=== PATIENT | female | born 1930 | race Caucasian/White ===

== ENCOUNTER 2017-05-05 16:40 | Emergency (ER) | payer MEDICARE, OTHER ==
[2017-05-05] MEDS ORDERED: Sodium Chloride 0.9% 10 ML Syringe FLUSH PRN (16:57)
[2017-05-05 16:59] VITALS: BP 155/105
[2017-05-05] MEDS ORDERED: fentaNYL 100 MCG/2 ML SDV IVPUSH ONE (17:00)
[2017-05-05] MEDS ORDERED: Sodium Chloride 0.9% 1,000 ML IV SCH (17:00)
[2017-05-05] MEDS ORDERED: Midazolam 1 MG/ML 2 ML SDV IVPUSH ONE (17:02)
--- NOTE | 2017-05-05 17:15 | EDM.PDOC ---
ED HPI GENERAL MEDICAL PROBLEM - General Chief Complaint: Lower Extremity Injury/Pain Stated Complaint: [facility] Time Seen by Provider: 05/05/17 16:52 Source of Information: Reports: Patient, EMS, Family - History of Present Illness INITIAL COMMENTS - FREE TEXT/NARRATIVE: 86-year-old lady suffered injury to her right ankle a short time ago. She states that she was in the bathroom on the stool. When she tried to get up one of her knees gave out on her and she ended up twisting her right ankle with resultant dislocation, probable fracture dislocation. She's been transported here by EMS. She was given 50 g of fentanyl in route. She does deny other pain or injury from this incident. Did not hit her head that she is aware of. No headache or LOC. No chest pain or difficulty breathing. No hip or pelvic discomfort. She does have history of hypertension and also chronic atrial fibrillation on aspirin and Coumadin. Left Ankle Pain Score (Numeric/FACES): 5 - Related Data Allergies Allergy/AdvReac Type Severity Reaction Status Date / Time No Known Allergies Allergy Verified 05/05/17 16:59 Home Meds: Home Meds Acetaminophen [Tylenol Extra Strength] 500 mg PO BEDTIME 02/09/15 [History] Arthritis Ease 1 cap PO BID 02/09/15 [History] Aspirin [Halfprin] 81 mg PO DAILY 02/09/15 [History] Calcium Carbonate/Vitamin D3 [Caltrate 600 + D Tablet] 400 - 600 mg PO BID 02/09 [History] Cholecalciferol (Vitamin D3) [Vitamin D3] 2,000 unit PO DAILY 02/09/15 [History] Flaxseed Oil [Flax Oil] 1,000 mg PO BID 02/09/15 [History] Gluc/Wild-Msm#1/Vit C/Maciel/Bor [Szmqkjy-Ujgzs-QXQ Complex Cplt] 400 - 500 mg PO BID 02/09/15 [History] Lisinopril 10 mg PO DAILY 02/09/15 [History] Lutein 20 mg PO DAILY 02/09/15 [History] Metoprolol Tartrate [Lopressor] 25 mg PO BID 02/09/15 [History] Multivitamin [Multi-Vitamin Daily] 1 tab PO DAILY 02/09/15 [History] [place]-3/DHA/Epa/Fish Oil [Fish Oil 1,000 mg Softgel] 1,000 mg PO BID 02/09/15 [ History] Rosuvastatin [Crestor] 40 mg PO DAILY 02/09/15 [History] Warfarin [Coumadin] 5 mg PO TUTHSA 02/09/15 [History] Warfarin [Coumadin] 10 mg PO SUMOWEFR 02/09/15 [History] carBAMazepine [Carbamazepine] 200 mg PO BID 02/09/15 [History] Arthritis Pain Reliever. 1 tab PO BID 05/05/17 [History] Past Medical History Cardiovascular History: Reports: Afib, High Cholesterol, Hypertension Respiratory History: Reports: None Gastrointestinal History: Reports: None Genitourinary History: Reports: None GUIDE DELEGATE History: Reports: None Musculoskeletal History: Reports: None Neurological History: Reports: TIA Psychiatric History: Reports: None Endocrine/Metabolic History: Reports: None Hematologic History: Reports: None Oncologic (Cancer) History: Reports: None Dermatologic History: Reports: None - Infectious Disease History Infectious Disease History: Reports: None - Past Surgical History Endocrine Surgical History: Reports: None Neurological Surgical History: Reports: None Social & Family History - Family History Family Medical History: Noncontributory - Tobacco Use Smoking Status *Q: Never Smoker Second Hand Smoke Exposure: No - Caffeine Use Caffeine Use: Reports: None - Alcohol Use Days Per Week of Alcohol Use: 0 - Recreational Drug Use Recreational Drug Use: No Review of Systems - Review of Systems Review Of Systems: See Below Constitutional: Reports: No Symptoms Ears: Reports: No Symptoms Nose: Reports: No Symptoms Mouth/Throat: Reports: No Symptoms Respiratory: Denies: Shortness of Breath, Pleuritic Chest Pain Cardiovascular: Denies: Chest Pain GI/Abdominal: Denies: Abdominal Pain, Nausea, Vomiting Musculoskeletal: Reports: Joint Pain ED EXAM, GENERAL - Physical Exam Exam: See Below General Appearance: Alert, Moderate Distress Eye Exam: Bilateral Eye: PERRL Ears: Normal External Exam Nose: Normal Inspection Throat/Mouth: Normal Inspection, Normal Oropharynx Head: Atraumatic. No: Facial Swelling, Facial Tenderness Neck: Supple, Non-Tender Respiratory/Chest: No Respiratory Distress, Lungs Clear, Normal Breath Sounds Cardiovascular: Irregularly Irregular GI/Abdominal: Soft, Non-Tender. No: Guarding Back Exam: No: Paraspinal Tenderness, Vertebral Tenderness Extremities: Leg Pain (Severe deformity left ankle, foot is dislocated posteriorly and laterally. There is pressure and tenting of the skin over the medial malleolus area but no open skin disruption, foot is warm but no dorsalis pedis pulse palpable. Refill is about 3-4 seconds.) Neurological: No Motor/Sensory Deficits (Patient does have some numbness of the foot but good sensation to touch plantar aspect of foot), Other (Patient does answer simple questions appropriately.) Skin Exam: Warm, Dry, Normal Color ED TRAUMA EXTREMITY PROCEDURES - Splinting Lower Extremity Splint Site: Left lower leg Pre-Procedure NV Status: Abnormal Post-Procedure NV Status: Normal Splint Material: Fiberglass Splint Design: Other Applied & Form Fitted By: Provider (Posterior) Provider Post-Splint Application NV Check: NV Status Normal, Other (Good dorsalis pedis pulse palpable after reduction) EKG INTERPRETATION EKG Date: 05/05/17 Rhythm: A-Fib [place]: Normal QRS: Other (She does have Q waves leads 3) ST-T: Normal Course - Vital Signs Last Recorded V/S: Last Vital Signs Temp 99.1 F 05/05/17 18:32 Pulse 97 05/05/17 18:32 Resp 18 05/05/17 18:32 BP 155/105 H 05/05/17 18:32 Pulse Ox 96 05/05/17 18:32 - Orders/Labs/Meds Orders: Active Orders 24 hr Category Date Time Status EKG 12 Lead [EKG Documentation Completion] [RC] STAT Care 05/05/17 17:55 Active Peripheral IV Care [RC] . DIRECTED Care 05/05/17 16:57 Active Ankle Min 3V Lt [CR] Stat Exams 05/05/17 17:52 Taken Ankle Min 3V Rt [CR] Stat Exams 05/05/17 17:05 Taken Chest 1V Frontal [CR] Stat Exams 05/05/17 19:01 Taken Sodium Chloride 0.9% [Normal Saline] 1,000 ml Med 05/05/17 17:00 Active IV ASDIRECTED Sodium Chloride 0.9% [Saline Flush] Med 05/05/17 16:57 Active 10 ml FLUSH ASDIRECTED PRN Peripheral IV Insertion Adult [OM.PC] Stat Oth 05/05/17 16:57 Ordered Schedule Procedure [COMM] Routine Oth 05/05/17 19:35 Ordered Medication Orders Sodium Chloride (Normal Saline) 1,000 mls @ 75 mls/hr IV ASDIRECTED CHRISTIAN Last Admin: 05/05/17 17:32 Dose: 75 mls/hr Sodium Chloride (Saline Flush) 10 ml FLUSH ASDIRECTED PRN PRN Reason: Keep Vein Open Last Admin: 05/05/17 17:33 Dose: 10 ml Labs: Laboratory Tests 05/05/17 05/05/17 05/05/17 Range/Units 17:19 17:19 17:19 WBC 8.77 (3.98-10.04) K/mm3 RBC 5.06 (3.98-5.22) M/mm3 Hgb 11.7 (11.2-15.7) gm/L Hct 37.3 (34.1-44.9) % MCV 73.7 L (79.4-94.8) fl MCH 23.1 L (25.6-32.2) pg MCHC 31.4 L (32.2-35.5) g/dl RDW Std Deviation 50.6 H (36.4-46.3) fL Plt Count 237 (182-369) K/mm3 MPV 9.4 (9.4-12.3) fl Neut % (Auto) 83.9 H (34.0-71.1) % Lymph % (Auto) 6.7 L (19.3-51.7) % [place] % (Auto) 8.8 (4.7-12.5) % Eos % (Auto) 0.2 L (0.7-5.8) Baso % (Auto) 0.2 (0.1-1.2) % Neut # (Auto) 7.35 H (1.56-6.13) K/mm3 Lymph # (Auto) 0.59 L (1.18-3.74) K/mm3 [place] # (Auto) 0.77 H (0.24-0.36) K/mm3 Eos # (Auto) 0.02 L (0.04-0.36) K/mm3 Baso # (Auto) 0.02 (0.01-0.08) K/mm3 Manual Slide Review Abnormal smear PT 17.8 H (8.0-13.0) SECONDS INR 1.59 Sodium 133 L (136-145) mEq/L Potassium 4.2 (3.5-5.1) mEq/L Chloride 96 L (98-107) mEq/L Carbon Dioxide 26 (21-32) mEq/L Anion Gap 15.2 H (5-15) BUN 16 (7-18) mg/dL Creatinine 0.7 (0.55-1.02) mg/dL Est Cr Clr Drug Dosing 47.97 mL/min Estimated GFR (MDRD) > 60 (>60) mL/min BUN/Creatinine Ratio 22.9 H (14-18) Glucose 140 H (83-115) mg/dL Calcium 8.9 (8.5-10.1) mg/dL Total Bilirubin 0.4 (0.2-1.0) mg/dL AST 33 (15-37) U/L ALT 27 (14-59) U/L Alkaline Phosphatase 146 H (46-116) U/L Total Protein 7.2 (6.4-8.2) g/dl Albumin 3.0 L (3.4-5.0) g/dl Globulin 4.2 gm/dL Albumin/Globulin Ratio 0.7 L (1-2) Meds: Medications Generic Name Dose Route Start Last Admin Trade Name Freq PRN Reason Stop Dose Admin Sodium Chloride 1,000 mls @ 75 mls/hr 05/05/17 17:00 05/05/17 17:32 Normal Saline IV 75 mls/hr ASDIRECTED CHRISTIAN Administration Sodium Chloride 10 ml 05/05/17 16:57 05/05/17 17:33 Saline Flush FLUSH 10 ml ASDIRECTED PRN Administration Keep Vein Open Discontinued Medications Generic Name Dose Route Start Last Admin Trade Name Freq PRN Reason Stop Dose Admin Fentanyl 50 mcg 05/05/17 17:00 05/05/17 17:21 Sublimaze IVPUSH 05/05/17 17:01 50 mcg ONETIME ONE Administration Ketamine HCl Confirm 05/05/17 17:34 05/05/17 17:38 Ketalar Administered 05/05/17 17:35 Not Given Dose 500 mg .ROUTE .STK-MED ONE Ketamine HCl 40 mg 05/05/17 17:35 05/05/17 17:39 Ketalar IM 05/05/17 17:36 40 mg ONETIME ONE Administration Midazolam HCl 1 mg 05/05/17 17:02 05/05/17 17:18 Versed 1 Mg/Ml IVPUSH 05/05/17 17:03 1 mg ONETIME ONE Administration - Re-Assessments/Exams Free Text/Narrative Re-Assessment/Exam: 05/05/17 18:30. Initial x-rays show quite severe fracture dislocation of the ankle with posterior and lateral displacement. She was given fentanyl 50 g IV per hydrology technician prior to arrival. She was given further 50 g and Versed 1 mg while initial x-rays were being obtained. Unfortunately on exam she did not have a palpable dorsalis pedis pulse. Her foot was warm and she still did have Refill of about 3-[address] Pratt was notified, he was on his way into surgery with a different orthopedic case. Patient was given ketamine 40 mg IV and foot and ankle was subsequently reduced back into position without difficulty. Reduction films do show very good anatomic alignment. It does confirm that she has fracture of the medial malleolus, distal fibula and also on the lateral view does have posterior tibial fracture making this a trimalleolar fracture dislocation. She is on Coumadin for chronic atrial fib. Her INR has come back at 1.59. Other labs are all relatively good. I discussed this with Dr. Pratt who has requested that due to her age and underlying medical problems of hypertension, chronic atrial fib, elevated INR that she be admitted to our hospitalist for medical management and preparation for surgery in the morning. 05/05/17 20:04. I did discuss admission with Dr. Pratt Orthopedist over an hour ago. He has asked that I have our Hospitalist do the admission for medical reasons as discussed above. Our hospitalist has seen patient, visited with family. They're now choosing to go to [facility] because there would be multi specialty backup available there if complications were to occur. They feel quite strongly about this. Therefore I will discuss this with [facility], make those transfer arrangements at this time 05/05/17 20:[address] Bay Pichardo, Orthopedics, [facility], [facility] accepts patient for transfer, she will be direct admit, will transfer by ground ambulance. Departure - Departure Time of Disposition: 19:00 Disposition: Admitted As Inpatient 64 Condition: Fair Clinical Impression: Trimalleolar fracture Qualifiers: Encounter type: initial encounter Fracture type: closed Laterality: left Qualified Code(s): S82.852A - Displaced trimalleolar fracture of left lower leg , initial encounter for closed fracture Atrial fibrillation Qualifiers: Atrial fibrillation type: chronic Qualified Code(s): I48.2 - Chronic atrial fibrillation Fall Qualifiers: Encounter type: initial encounter Qualified Code(s): W19.XXXA - Unspecified fall, initial encounter - Discharge Information Referrals: Pauly Amin, [employer] [Primary Care Provider] - Forms: ED Department Discharge ED Communication - Discussed Case With (1) Discussed Case With (1): Admitting Provider (Dr Hendrix, decision to admit at about 19:00) - My Orders Last 24 Hours: My Active Orders 05/05/17 16:57 Peripheral IV Care [RC] . DIRECTED Sodium Chloride 0.9% [Saline Flush] 10 ml FLUSH ASDIRECTED PRN Peripheral IV Insertion Adult [OM.PC] Stat 05/05/17 17:00 Sodium Chloride 0.9% [Normal Saline] 1,000 ml IV ASDIRECTED 05/05/17 17:05 Ankle Min 3V Rt [CR] Stat 05/05/17 17:52 Ankle Min 3V Lt [CR] Stat 05/05/17 17:55 EKG 12 Lead [EKG Documentation Completion] [RC] STAT 05/05/17 19:01 Chest 1V Frontal [CR] Stat - Assessment/Plan Last 24 Hours: My Active Orders 05/05/17 16:57 Peripheral IV Care [RC] . DIRECTED Sodium Chloride 0.9% [Saline Flush] 10 ml FLUSH ASDIRECTED PRN Peripheral IV Insertion Adult [OM.PC] Stat 05/05/17 17:00 Sodium Chloride 0.9% [Normal Saline] 1,000 ml IV ASDIRECTED 05/05/17 17:05 Ankle Min 3V Rt [CR] Stat 05/05/17 17:52 Ankle Min 3V Lt [CR] Stat 05/05/17 17:55 EKG 12 Lead [EKG Documentation Completion] [RC] STAT 05/05/17 19:01 Chest 1V Frontal [CR] Stat
[2017-05-05] MEDS ORDERED: Ketamine 500 mg/10 ML MDV ONE (17:34)
[2017-05-05] MEDS ORDERED: Ketamine 500 mg/10 ML MDV IM ONE (17:35)
--- NOTE | 2017-05-05 18:32 | PCM.PREANE ---
Preanesthetic Assessment - Anesthesia/Transfusion/Family Hx Intubation History: Unknown - Physical Assessment NPO Status Date: 05/05/17 Pulse: 97 O2 Sat by Pulse Oximetry: 96 Respiratory Rate: 18 Blood Pressure: 155/105 Temperature: 37.3 C Vital Signs: Last Vital Signs Temp 37.3 C 05/05/17 16:52 Pulse 97 05/05/17 16:52 Resp 18 05/05/17 16:52 BP 155/105 H 05/05/17 16:52 Pulse Ox 96 05/05/17 16:52 Height: 1.63 m Weight: 81.193 kg - Lab Values: Laboratory Last Values WBC 8.77 K/mm3 (3.98-10.04) 05/05/17 17:19 RBC 5.06 M/mm3 (3.98-5.22) 05/05/17 17:19 Hgb 11.7 gm/L (11.2-15.7) 05/05/17 17:19 Hct 37.3 % (34.1-44.9) 05/05/17 17:19 MCV 73.7 fl (79.4-94.8) L 05/05/17 17:19 MCH 23.1 pg (25.6-32.2) L 05/05/17 17:19 MCHC 31.4 g/dl (32.2-35.5) L 05/05/17 17:19 RDW Std Deviation 50.6 fL (36.4-46.3) H 05/05/17 17:19 Plt Count 237 K/mm3 (182-369) 05/05/17 17:19 MPV 9.4 fl (9.4-12.3) 05/05/17 17:19 Neut % (Auto) 83.9 % (34.0-71.1) H 05/05/17 17:19 Lymph % (Auto) 6.7 % (19.3-51.7) L 05/05/17 17:19 [place] % (Auto) 8.8 % (4.7-12.5) 05/05/17 17:19 Eos % (Auto) 0.2 (0.7-5.8) L 05/05/17 17:19 Baso % (Auto) 0.2 % (0.1-1.2) 05/05/17 17:19 Neut # (Auto) 7.35 K/mm3 (1.56-6.13) H 05/05/17 17:19 Lymph # (Auto) 0.59 K/mm3 (1.18-3.74) L 05/05/17 17:19 [place] # (Auto) 0.77 K/mm3 (0.24-0.36) H 05/05/17 17:19 Eos # (Auto) 0.02 K/mm3 (0.04-0.36) L 05/05/17 17:19 Baso # (Auto) 0.02 K/mm3 (0.01-0.08) 05/05/17 17:19 Manual Slide Review Abnormal smear 05/05/17 17:19 PT 17.8 SECONDS (8.0-13.0) H 05/05/17 17:19 INR 1.59 05/05/17 17:19 Sodium 133 mEq/L (136-145) L 05/05/17 17:19 Potassium 4.2 mEq/L (3.5-5.1) 05/05/17 17:19 Chloride 96 mEq/L (98-107) L 05/05/17 17:19 Carbon Dioxide 26 mEq/L (21-32) 05/05/17 17:19 Anion Gap 15.2 (5-15) H 05/05/17 17:19 BUN 16 mg/dL (7-18) 05/05/17 17:19 Creatinine 0.7 mg/dL (0.55-1.02) 05/05/17 17:19 Est Cr Clr Drug Dosing 47.97 mL/min 05/05/17 17:19 Estimated GFR (MDRD) > 60 mL/min (>60) 05/05/17 17:19 BUN/Creatinine Ratio 22.9 (14-18) H 05/05/17 17:19 Glucose 140 mg/dL (83-115) H 05/05/17 17:19 Calcium 8.9 mg/dL (8.5-10.1) 05/05/17 17:19 Total Bilirubin 0.4 mg/dL (0.2-1.0) 05/05/17 17:19 AST 33 U/L (15-37) 05/05/17 17:19 ALT 27 U/L (14-59) 05/05/17 17:19 Alkaline Phosphatase 146 U/L (46-116) H 05/05/17 17:19 Total Protein 7.2 g/dl (6.4-8.2) 05/05/17 17:19 Albumin 3.0 g/dl (3.4-5.0) L 05/05/17 17:19 Globulin 4.2 gm/dL 05/05/17 17:19 Albumin/Globulin Ratio 0.7 (1-2) L 05/05/17 17:19 - Allergies Allergies/Adverse Reactions: Allergies Allergy/AdvReac Type Severity Reaction Status Date / Time No Known Allergies Allergy Verified 05/05/17 16:59 - Anesthesia Plan Pre-Op Medication Ordered: Beta Juan Beta Juan: Metoprolol Med Last Dose Date: 05/05/17 - Acknowledgements Anesthesia Type Planned: General Anesthesia Pt an Appropriate Candidate for the Planned Anesthesia: Yes Alternatives and Risks of Anesthesia Discussed w Pt/Guardian: Yes Pt/Guardian Understands and Agrees with Anesthesia Plan: Yes PreAnesthesia Questionnaire Cardiovascular History: Reports: Afib, High Cholesterol, Hypertension Respiratory History: Reports: None Gastrointestinal History: Reports: None Genitourinary History: Reports: None MILK VENDOR History: Reports: None Musculoskeletal History: Reports: None Neurological History: Reports: TIA Psychiatric History: Reports: None Endocrine/Metabolic History: Reports: None Hematologic History: Reports: None Oncologic (Cancer) History: Reports: None Dermatologic History: Reports: None - Infectious Disease History Infectious Disease History: Reports: None - Past Surgical History Endocrine Surgical History: Reports: None Neurological Surgical History: Reports: None - SUBSTANCE USE Smoking Status *Q: Never Smoker Second Hand Smoke Exposure: No Days Per Week of Alcohol Use: 0 Recreational Drug Use History: No - HOME MEDS Home Medications: Home Meds Acetaminophen [Tylenol Extra Strength] 500 mg PO BEDTIME 02/09/15 [History] Arthritis Ease 1 cap PO BID 02/09/15 [History] Aspirin [Halfprin] 81 mg PO DAILY 02/09/15 [History] Calcium Carbonate/Vitamin D3 [Caltrate 600 + D Tablet] 400 - 600 mg PO BID 02/09 [History] Cholecalciferol (Vitamin D3) [Vitamin D3] 2,000 unit PO DAILY 02/09/15 [History] Flaxseed Oil [Flax Oil] 1,000 mg PO BID 02/09/15 [History] Gluc/Wild-Msm#1/Vit C/Maciel/Bor [[place]-Zfpxt-XOV Complex Cplt] 400 - 500 mg PO BID 02/09/15 [History] Lisinopril 10 mg PO DAILY 02/09/15 [History] Lutein 20 mg PO DAILY 02/09/15 [History] Metoprolol Tartrate [Lopressor] 25 mg PO BID 02/09/15 [History] Multivitamin [Multi-Vitamin Daily] 1 tab PO DAILY 02/09/15 [History] [place]-3/DHA/Epa/Fish Oil [Fish Oil 1,000 mg Softgel] 1,000 mg PO BID 02/09/15 [ History] Rosuvastatin [Crestor] 40 mg PO DAILY 02/09/15 [History] Warfarin [Coumadin] 5 mg PO TUTHSA 02/09/15 [History] Warfarin [Coumadin] 10 mg PO SUMOWEFR 02/09/15 [History] carBAMazepine [Carbamazepine] 200 mg PO BID 02/09/15 [History] Arthritis Pain Reliever. 1 tab PO BID 05/05/17 [History] - CURRENT (IN HOUSE) MEDS Current Meds: Current Medications Sodium Chloride (Normal Saline) 1,000 mls @ 75 mls/hr IV ASDIRECTED CHRISTIAN Last Admin: 05/05/17 17:32 Dose: 75 mls/hr Sodium Chloride (Saline Flush) 10 ml FLUSH ASDIRECTED PRN PRN Reason: Keep Vein Open Last Admin: 05/05/17 17:33 Dose: 10 ml Discontinued Medications Fentanyl (Sublimaze) 50 mcg IVPUSH ONETIME ONE Stop: 05/05/17 17:01 Last Admin: 05/05/17 17:21 Dose: 50 mcg Ketamine HCl (Ketalar) Confirm Administered Dose 500 mg .ROUTE .STK-MED ONE Stop: 05/05/17 17:35 Last Admin: 05/05/17 17:38 Dose: Not Given Ketamine HCl (Ketalar) 40 mg IM ONETIME ONE Stop: 05/05/17 17:36 Last Admin: 05/05/17 17:39 Dose: 40 mg Midazolam HCl (Versed 1 Mg/Ml) 1 mg IVPUSH ONETIME ONE Stop: 05/05/17 17:03 Last Admin: 05/05/17 17:18 Dose: 1 mg
--- NOTE | 2017-05-07 17:30 | CR ---
Right ankle: Four views of the right ankle were obtained. Comparison: Previous right ankle study performed earlier on the same day (5:04 PM). Trimalleolar fracture is again noted. Alignment shows significant improvement from previous exam. Previous dislocation has been reduced. Bony structures are osteoporotic. Diffuse soft tissue swelling is noted. Previous surgery is noted within the first metatarsal. Impression: 1. Improved alignment of previous trimalleolar fracture. 2. Previous dislocation has been reduced. 3. Other findings as noted above. Diagnostic code #3 Note: Order states left side but exam is marked right side.
--- NOTE | 2017-05-07 17:30 | CR ---
Chest: Portable view of the chest was obtained. Comparison: Previous chest x-ray of 03/06/09. Heart is slightly enlarged. Tortuous thoracic aorta is seen. Lungs are clear with no acute infiltrates. Mild scoliosis is noted within the spine. Bony structures are osteoporotic. Impression: 1. Findings as noted above. No significant change is seen from previous exam. Nothing acute is appreciated. Diagnostic code #2
--- NOTE | 2017-05-07 17:30 | CR ---
Right ankle: Four views of the right ankle were obtained. Fracture is identified within the lateral malleolus. Dislocation is seen of the tibiotalar joint. Dislocation of the tibia is anterior and medial. Additional fracture is seen within the medial malleolus. Posterior malleolar fracture is also noted. Diffuse soft tissue swelling is identified. Bony structures are osteoporotic. Previous surgery is noted within the proximal first metatarsal. Impression: 1. Displaced trimalleolar fracture with dislocation at the ankle joint. 2. Osteoporosis. 3. Soft tissue swelling. Diagnostic code #5
--- NOTE | 2017-05-08 06:56 | CONS ---
CONSULTING PHYSICIAN: Damien Barnes MD DATE OF CONSULTATION: 05/05/2017 Orthopedic consultation is called for evaluation of severe left ankle pain. HISTORY: The patient has a history of some dementia and suffered a fall late this afternoon around 1700 hours, had significant deformity about the left ankle area, was brought into the emergency room, where x-rays were performed. She was found to have a trimalleolar fracture with dislocation of the ankle joint. In the emergency room, the emergency physicians due to the decrease in circulation to the foot gave the patient a light sedation medication with pain relief and the reduction was carried out to bring the ankle into better position and splinted. This restored the circulation. The evaluation of the patient in the emergency room at this point was carried out after the patient had undergone the initial emergency treatment for the circulation problem of the ankle. ALLERGIES: The patient has no known drug allergies. PAST MEDICAL HISTORY: The patient has a history of atrial fibrillation. She has also has a history of high blood pressure. She is on multiple medications. MEDICATIONS: Coumadin 5 mg. She also is on Crestor, Lopressor. She is on multivitamins, calcium and vitamin D replacement. REVIEW OF SYMPTOMS: HEAD EYES, EARS, NOSE, AND THROAT: The patient has no complaints of any head colds or upper respiratory infections. Also, the patient does wear glasses. CARDIAC: The patient has no complaint of cardiac problems. CHEST: Showed no shortness of breath or any type of asthma or pneumonia history. ABDOMEN: The patient also relates no abdominal infection problems or bladder infections at this point EXTREMITIES: Evaluation found the patient to have severe pain around the left ankle area which was the area of injury. No other injuries were noted to the extremities. PHYSICAL EXAMINATION: GENERAL: Reveals a well-developed, well-nourished, 86-year-old female, in moderate to severe distress. HEAD, EYES, EARS, NOSE, AND THROAT: Normocephalic. NECK: Supple. CHEST: Clear. COR: Regular rate. ABDOMEN: Soft. : Intact. EXTREMITIES: Examination of the of the left ankle reveals positive skin intact over the malleolar area. The patient's current pulses have returned with good pulses palpable, has good circulation to the tips of the toes at this point. Radiologically, the patient's x-rays were reviewed. This shows a trimalleolar fracture that initially had a dislocation laterally. The postreduction x-rays in the emergency room found the trimalleolar fracture to be much more prominent for the patient. Bones of the medial malleolus, lateral malleolus, and posterior malleolus all returned to a relatively good position. IMPRESSION: Unstable trimalleolar fracture, left ankle. PLAN: 1. Plan will be for the patient to be admitted for medical stabilization of her atrial fibrillation and evaluation with Coumadin and if necessary, Coumadin reversal. 2. The patient will be scheduled for an open reduction and internal fixation of the left ankle fracture and this was outlined to the family and the power of history tutor for the patient. They understand the procedure and the reasoning for the procedure to stabilize the ankle and understand that this will be carried out after the patient has been medically stabilized. They have consented to the surgery. ABEBA /[id number]
== END 2017-05-05 21:05 | disposition critical access hospital (66) ==
LOC: SUPCPDRO 16:40 → JD.ED 16:40 → JD.SDS 20:08 → JD.ED 21:05
DX: S82.852A Displaced trimalleolar fracture of left lower leg, initial encounter for closed fracture (principal); I10 Essential (primary) hypertension; I48.2 Chronic atrial fibrillation; E78.00 Pure hypercholesterolemia, unspecified; Z79.82 Long term (current) use of aspirin; Z79.01 Long term (current) use of anticoagulants; Z79.899 Other long term (current) drug therapy; Z86.73 Personal history of transient ischemic attack (TIA), and cerebral infarction without residual deficits; W19.XXXA Unspecified fall, initial encounter
CPT/HCPCS: 27840; 36415; 71010; 73610; 80053; 85025; 85610; 93005; 96361; 96372; 96374; 96375; 99152; 99285; J2250; J3010; J7040; J7050; 29515; 93010; 99284

== ENCOUNTER 2018-04-11 08:12 | Emergency (ER) | payer MEDICARE, OTHER ==
[2018-04-11] MEDS ORDERED: Oxymetazoline 0.05% Nasal Spray 15 ML Bottle NAS ONE (08:37)
[2018-04-11 10:31] VITALS: BP 163/99
[2018-04-11] MEDS ORDERED: Sodium Chloride 0.9% 10 ML Syringe FLUSH PRN (11:08)
[2018-04-11] MEDS ORDERED: Phytonadione 5 MG in Sodium Chloride 0.9% 50 ML IV ONE (11:08)
[2018-04-11] MEDS ORDERED: Sodium Chloride 0.9% 1,000 ML IV SCH (12:30)
--- NOTE | 2018-04-11 12:32 | EDM.PDOC ---
ED HPI GENERAL MEDICAL PROBLEM - General Chief Complaint: ENT Problem Stated Complaint: NOSE BLEED Time Seen by Provider: 04/11/18 08:29 Source of Information: Reports: Patient, Family, Provider History Limitations: Reports: No Limitations - History of Present Illness INITIAL COMMENTS - FREE TEXT/NARRATIVE: The patient presents with right sided nose bleed. This started about an hour or two before arrival. She is coumadin for A-fib and TIAs. She had her INR checked a few days ago according to her daughter and it looked good at 2.25. The patient had no trauma to her nose She had a nose bleed about 2 years ago and they had to use a Rhino Rocket. She followed up with ENT and it sounds like they had to do electric cautery. She has no fever, chills, cough, chest pain, shortness of breath, abdominal pain, nausea or vomiting. Onset: Gradual Duration: Hour(s): Severity: Moderate Improves with: Reports: None Worsens with: Reports: None Associated Symptoms: Reports: No Other Symptoms - Related Data Allergies Allergy/AdvReac Type Severity Reaction Status Date / Time No Known Allergies Allergy Verified 04/11/18 08:26 Home Meds: Home Meds Acetaminophen [Tylenol Extra Strength] 500 mg PO BEDTIME 02/09/15 [History] Aspirin [Halfprin] 81 mg PO DAILY 02/09/15 [History] Calcium Carbonate/Vitamin D3 [Caltrate 600 + D Tablet] 400 - 600 mg PO BID 02/09 [History] Cholecalciferol (Vitamin D3) [Vitamin D3] 2,000 unit PO DAILY 02/09/15 [History] Lisinopril 30 mg PO DAILY 02/09/15 [History] Metoprolol Tartrate [Lopressor] 50 mg PO BID 02/09/15 [History] Multivitamin [Multi-Vitamin Daily] 1 tab PO DAILY 02/09/15 [History] Rosuvastatin [Crestor] 40 mg PO DAILY 02/09/15 [History] Warfarin [Coumadin] 5 mg PO [id number] 02/09/15 [History] Warfarin [Coumadin] 7.5 mg PO MO 02/09/15 [History] carBAMazepine [Carbamazepine] 200 mg PO BID 02/09/15 [History] Bisacodyl [Dulcolax] 10 mg RECTAL DAILY PRN 04/11/18 [History] Past Medical History Cardiovascular History: Reports: Afib, High Cholesterol, Hypertension Respiratory History: Reports: None Gastrointestinal History: Reports: None Genitourinary History: Reports: None MALL MANAGER History: Reports: None Musculoskeletal History: Reports: None Neurological History: Reports: TIA Psychiatric History: Reports: None Endocrine/Metabolic History: Reports: None Hematologic History: Reports: None Oncologic (Cancer) History: Reports: None Dermatologic History: Reports: None - Infectious Disease History Infectious Disease History: Reports: None - Past Surgical History Endocrine Surgical History: Reports: None Neurological Surgical History: Reports: None Social & Family History - Family History Family Medical History: Noncontributory - Tobacco Use Smoking Status *Q: Never Smoker - Caffeine Use Caffeine Use: Reports: Coffee ED ROS ENT - Review of Systems Review Of Systems: See Below Constitutional: Reports: No Symptoms HEENT: Reports: Nosebleed Respiratory: Reports: No Symptoms Cardiovascular: Reports: No Symptoms Endocrine: Reports: No Symptoms GI/Abdominal: Reports: No Symptoms : Reports: No Symptoms Musculoskeletal: Reports: No Symptoms Skin: Reports: No Symptoms Neurological: Reports: No Symptoms ED EXAM, ENT - Physical Exam Exam: See Below Exam Limited By: No Limitations General Appearance: Alert, No Apparent Distress Ears: Normal External Exam Nose: Active Bleeding (right nare) Mouth/Throat: Normal Inspection Head: Atraumatic, Normocephalic Neck: Normal Inspection Respiratory/Chest: No Respiratory Distress, Lungs Clear, Normal Breath Sounds Cardiovascular: Regular Rate, Rhythm, No Edema, No Murmur GI/Abdominal: Soft, Non-Tender, No Organomegaly, No Mass Extremities: Normal Inspection Neurological: Alert, Oriented, No Motor/Sensory Deficits ED ENT PROCEDURES - Epistaxis Procedure Indication: Epistaxis Recent anticoagulants/antiplatlets: Yes Uncontrolled HTN: No Recent septal/nasal surgery: No Site of bleeding: Right Nare Clearing of clots: Patient Blew Nose, Suction Topical Meds: Other (Afrin) Ice pack to area: No Chemical cautery: Silver Nitrate Topical Anterior Packing: Petrolatum Guaze Strip Complications: Yes Complication Description: I first used Afrin and some silver nitrate on the area I thought was the source. It helped for a short time. I tried it again but there was way more bleeding. I used suction at that time. I could not pass anything past mid way up into the right side of her nose. I packed it with petroleum gauze. It slowed down for awhile and then it went down the back of her throat. I tried a rhino rocket but I could not pass anything on the right. I tried a posterior 7.5cm rhino rocket on the left but I could not get it half way in. I then used a 5.5 and I got that in and I inflated it. It slowed the bleeding some but she is still having bleeding to the back of her throat. Course - Vital Signs Last Recorded V/S: Last Vital Signs Temp 97.1 F 04/11/18 08:21 Pulse 64 04/11/18 10:31 Resp 18 04/11/18 10:31 BP 163/99 H 04/11/18 10:31 Pulse Ox 98 04/11/18 10:31 - Orders/Labs/Meds Orders: Active Orders 24 hr Category Date Time Status Peripheral IV Care [RC] . DIRECTED Care 04/11/18 11:08 Active CBC WITH AUTO DIFF [HEME] Stat Lab 04/11/18 11:45 Results Sodium Chloride 0.9% [Normal Saline] 1,000 ml Med 04/11/18 12:30 Active IV ASDIRECTED Sodium Chloride 0.9% [Saline Flush] Med 04/11/18 11:08 Active 10 ml FLUSH ASDIRECTED PRN Peripheral IV Insertion Adult [OM.PC] Routine Oth 04/11/18 11:08 Ordered Medication Orders Sodium Chloride (Normal Saline) 1,000 mls @ 100 mls/hr IV ASDIRECTED CHRISTIAN Sodium Chloride (Saline Flush) 10 ml FLUSH ASDIRECTED PRN PRN Reason: Keep Vein Open Last Admin: 04/11/18 11:35 Dose: 10 ml Labs: Laboratory Tests 04/11/18 04/11/18 Range/Units 08:58 11:45 WBC 1.48 L* (3.98-10.04) K/mm3 RBC 3.92 L (3.98-5.22) M/mm3 Hgb 9.4 L (11.2-15.7) gm/L Hct 31.0 L (34.1-44.9) % MCV 79.1 L (79.4-94.8) fl MCH 24.0 L (25.6-32.2) pg MCHC 30.3 L (32.2-35.5) g/dl RDW Std Deviation 54.4 H (36.4-46.3) fL Plt Count 201 (182-369) K/mm3 MPV 9.6 (9.4-12.3) fl Neut % (Auto) 27.6 L (34.0-71.1) % Lymph % (Auto) 67.6 H (19.3-51.7) % Bond % (Auto) 3.4 L (4.7-12.5) % Eos % (Auto) 0 L (0.7-5.8) Baso % (Auto) 0.7 (0.1-1.2) % Neut # (Auto) 0.41 L (1.56-6.13) K/mm3 Lymph # (Auto) 1.00 L (1.18-3.74) K/mm3 Bond # (Auto) 0.05 L (0.24-0.36) K/mm3 Eos # (Auto) 0.00 L (0.04-0.36) K/mm3 Baso # (Auto) 0.01 (0.01-0.08) K/mm3 PT 30.6 H (9.5-12.1) SECONDS INR 2.87 Meds: Medications Generic Name Dose Route Start Last Admin Trade Name Freq PRN Reason Stop Dose Admin Sodium Chloride 1,000 mls @ 100 mls/hr 04/11/18 12:30 Normal Saline IV ASDIRECTED CHRISTIAN Sodium Chloride 10 ml 04/11/18 11:08 04/11/18 11:35 Saline Flush FLUSH 10 ml ASDIRECTED PRN Administration Keep Vein Open Discontinued Medications Generic Name Dose Route Start Last Admin Trade Name Freq PRN Reason Stop Dose Admin Phytonadione 5 mg/ Sodium 50.5 mls @ 100 mls/hr 04/11/18 11:08 04/11/18 11:33 Chloride IV 04/11/18 11:38 100 mls/hr NOW ONE Administration Oxymetazoline HCl 1 ml 04/11/18 08:37 04/11/18 09:16 Afrin Original 0.05% Nasal [place] DWIGHT 04/11/18 08:38 1 ml ONETIME ONE Administration - Re-Assessments/Exams Free Text/Narrative Re-Assessment/Exam: 04/11/18 12:35 I could not get the bleeding stopped with silver nitrate, petroleum gauze and rhino rockets. 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 I feel the bleed is posterior on the right and behind where the stricture is. I cannot get to it. I checked an INR and it was 2.87. I ordered an IV saline lock and vitamin K 5mg IV. She had some bloody stools. I checked her CBC and her WBC was very low at 1.48. I called her doctor Dr Slaughter and she has no history of this as far as she knows. Her Hgb is low at 9.4. Her last Hgb was 11. Her platelets were normal at 201. I cannot get this to stop. I called [facility] in [place] and talked with Dr Bah the ENT doctor process control programmer and she accepted the patient. I also talked to the ER doctor process control programmer and we discussed some options for treatment and I tried most of them. She will be going by ambulance. Departure - Departure Time of Disposition: 12:40 Disposition: DC/Tfer to Acute Hospital 02 Condition: Fair Clinical Impression: Epistaxis Atrial fibrillation Qualifiers: Atrial fibrillation type: chronic Qualified Code(s): I48.2 - Chronic atrial fibrillation Leukopenia Qualifiers: Leukopenia type: other Qualified Code(s): D72.818 - Other decreased white blood cell count Anemia Qualifiers: Anemia type: unspecified type Qualified Code(s): D64.9 - Anemia, unspecified - Discharge Information Referrals: Jass Slaughter MD [Primary Care Provider] - - My Orders Last 24 Hours: My Active Orders 04/11/18 11:08 Peripheral IV Care [RC] . DIRECTED Sodium Chloride 0.9% [Saline Flush] 10 ml FLUSH ASDIRECTED PRN Peripheral IV Insertion Adult [OM.PC] Routine 04/11/18 11:45 CBC WITH AUTO DIFF [HEME] Stat 04/11/18 12:30 Sodium Chloride 0.9% [Normal Saline] 1,000 ml IV ASDIRECTED - Assessment/Plan Last 24 Hours: My Active Orders 04/11/18 11:08 Peripheral IV Care [RC] . DIRECTED Sodium Chloride 0.9% [Saline Flush] 10 ml FLUSH ASDIRECTED PRN Peripheral IV Insertion Adult [OM.PC] Routine 04/11/18 11:45 CBC WITH AUTO DIFF [HEME] Stat 04/11/18 12:30 Sodium Chloride 0.9% [Normal Saline] 1,000 ml IV ASDIRECTED
== END 2018-04-11 12:50 ==
LOC: JD.ED 08:12
DX: R04.0 Epistaxis (principal); I48.91 Unspecified atrial fibrillation; D72.818 Other decreased white blood cell count; D64.9 Anemia, unspecified; E78.00 Pure hypercholesterolemia, unspecified; I10 Essential (primary) hypertension; Z79.82 Long term (current) use of aspirin; Z79.899 Other long term (current) drug therapy; Z79.01 Long term (current) use of anticoagulants
CPT/HCPCS: 30903; 30905; 36415; 85025; 85610; 96365; 99285; A9270; J3430; J7040; J7050